=== PATIENT | male | born 1960 | race Two or more races ===

== ENCOUNTER 2019-12-31 18:37 | Inpatient (IN) | payer MEDICARE, OTHER ==
[~2019-12-31] VITALS: Ht 185.4 cm; Wt 89.4 kg
--- NOTE | 2019-12-31 18:48 | NUR ---
Blood sugar of 154 md notified.
--- NOTE | 2019-12-31 18:52 | NUR ---
at bedside to examine patient.
--- NOTE | 2019-12-31 18:55 | NUR ---
negative MRSA results in pt's file.
[2019-12-31] MEDS ORDERED: MAGNESIUM OXIDE 400 MG TABLET PO ONE (19:00)
[2019-12-31] MEDS ORDERED: POTASSIUM CHLORIDE 20 MEQ TAB.PRT.SR PO ONE (19:00)
[2019-12-31] MEDS ORDERED: POTASSIUM CHLORIDE 20 MEQ TAB.PRT.SR ONE (19:03)
[2019-12-31] MEDS ORDERED: LISI-607 PO (19:12)
[2019-12-31] MEDS ORDERED: SITA50TA PO (19:12)
[2019-12-31] MEDS ORDERED: MONT10TA22 PO (19:12)
[2019-12-31] MEDS ORDERED: TIMO5SOL11 EACHEYE (19:12)
[2019-12-31] MEDS ORDERED: ALBU8.5H8 INH (19:12)
[2019-12-31] MEDS ORDERED: ONDA4TAB5 PO (19:12)
[2019-12-31] MEDS ORDERED: ROSU5TAB PO (19:12)
[2019-12-31] MEDS ORDERED: METF-442 PO (19:12)
[2019-12-31] MEDS ORDERED: IBUP100O19 PO (19:12)
[2019-12-31] MEDS ORDERED: QUET200T PO (19:12)
[2019-12-31] MEDS ORDERED: VENL150T PO (19:12)
[2019-12-31] MEDS ORDERED: TEMA30CA5 PO (19:12)
[2019-12-31] MEDS ORDERED: DISU250T7 PO (19:12)
--- NOTE | 2019-12-31 19:14 | NUR ---
Report given incoming R.N.
[2019-12-31 19:25] LABS: *AMPHETAMINE, URINE NEGATIVE (NEGATIVE); *BARBITURATE, URINE NEGATIVE (NEGATIVE); *CANNABINOID, URINE NEGATIVE (NEGATIVE); *COCCAINE, URINE NEGATIVE (NEGATIVE); *OPIATE, URINE NEGATIVE (NEGATIVE); *PHENCYCLIDINE SCREEN,URINE NEGATIVE (NEGATIVE)
--- NOTE | 2019-12-31 19:41 | NUR ---
Patient A&Ox4. denies any SI / HI at this time. All medications accounted for and placed in sealed bags. Safety precautions implemented. Frequent visual checks done
[2019-12-31 20:45] VITALS: BP 149/89
--- NOTE | 2019-12-31 20:45 | NUR ---
Admitted, 59year old male for Voluntary Geropsych Overflow with Dx of Major depression. Patient awake and alert. Patient denies any SOB or acute distress. Patient denies any pain. Patient's belongings checked and in contraband locker. Safety measures in place. Will continue to monitor.
[2019-12-31] MEDS ORDERED: MAGNESIUM HYDROXIDE 30 ML LIQUID UDC PO PRN (21:45)
[2019-12-31] MEDS ORDERED: MAG HYDROX/AL HYDROX/SIMETH 30 ML LIQUID UDC PO PRN (21:45)
[2019-12-31] MEDS: LORAZEPAM 0.5 MG TABLET PO PRN (23:09)
[2019-12-31] MEDS: TEMAZEPAM 7.5 MG CAPSULE PO PRN (23:59)
--- NOTE | 2020-01-01 02:00 | NUR ---
Admission Note: 59 y.o. male admitted to GPS overflow on a Voluntary status with a diagnosis of Major Depression. Dr Lua and Dr Watson notified of admission, medications to be reconciled. Pt was brought here from [facility], where he was treated for acute ETOH intoxication. Pt reported he "fell off the wagon" after several years of sobriety, which increased his depression. Pt denies SI/HI and verbally contracts for safety. Q 15 minute safety checks initiated.
[2020-01-01 04:00] VITALS: BP 140/80
--- NOTE | 2020-01-01 06:20 | NUR ---
Patient in bed sleeping. Easy to arouse. Patient has no s/s of acute distress. Patient has no s/s of pain. Patient was cooperative. Needs attended. Vitals stable. Safety measures in place. Call lights within reach. Will endorse to the oncoming nurse accordingly.
--- NOTE | 2020-01-01 06:37 | NUR ---
Patient slept for 7 hours. No episode or sign of SI observed throughout the shift. Patient was cooperative. Will endorse to the oncoming nurse.
[2020-01-01 07:39] VITALS: BP 140/83
[2020-01-01] MEDS ORDERED: ALBUTEROL SULFATE 8 GM HFA.AER.AD INH PRN (09:15)
[2020-01-01] MEDS ORDERED: TIMOLOL MALEATE XE 0.5% OPHT 5 ML BOTTLE EACHEYE SCH (09:15)
[2020-01-01] MEDS ORDERED: ALBUTEROL SULFATE 2.5 MG/3 ML NEBU NEB PRN (09:30)
[2020-01-01] MEDS: LISINOPRIL 5 MG TABLET PO SCH (10:00)
[2020-01-01] MEDS: METFORMIN HCL 500 MG TABLET PO SCH ×2 (10:00→17:36)
--- NOTE | 2020-01-01 10:00 | NUR ---
pt is on 14 days hold nursing supervisor residential notified no sitter available
[2020-01-01] MEDS: VENLAFAXINE XR 75 MG TAB.ER.24H PO SCH (10:47)
[2020-01-01] MEDS: QUETIAPINE FUMARATE 25 MG TABLET PO SCH ×2 (10:47→17:36)
[2020-01-01] MEDS ORDERED: TIMO5DRO18 EACHEYE (10:59)
[2020-01-01] MEDS: TIMOLOL MALEATE 0.5% OPHT DROP 5 ML BOTTLE EACHEYE SCH ×2 (11:00→21:08)
--- NOTE | 2020-01-01 11:49 | NUR ---
Social Work Family Contact: counter supply worker contacted patient's friend Casper ([phone]) and gathered collateral.
--- NOTE | 2020-01-01 11:49 | NUR ---
Social Work Initial Discharge: Patient is homeless. Per pt, he would want this card writer hand to find him an Independent Living. breakdown worker will work with the pt and the MD regarding appropriate discharge planning. breakdown worker will form a safe and proper discharge.
[2020-01-01] MEDS: THIAMINE HCL 100 MG TABLET PO SCH (12:29)
[2020-01-01] MEDS: FOLIC ACID 1 MG TABLET PO SCH (12:29)
[2020-01-01 15:15] VITALS: BP 132/78
--- NOTE | 2020-01-01 15:18 | NUR ---
TRANSFER THE PT TO [facility] [place] IN STABLE CONDITION
[2020-01-01 16:00] VITALS: BP 121/85
[2020-01-01] MEDS: MONTELUKAST SODIUM 10 MG TABLET PO SCH (17:44)
[2020-01-01 19:46] VITALS: BP 124/74
[2020-01-01] MEDS: ATORVASTATIN 10 MG TABLET PO SCH (21:08)
[2020-01-01] MEDS: QUETIAPINE FUMARATE 200 MG TABLET PO SCH (21:08)
--- NOTE | 2020-01-01 21:49 | NUR ---
PATIENT RECEIVED IN THE ACTIVITIES ROOM WATCHING T.V. PATIENT COMPLAINT WITH MEDICATION. NO AGGRESSIVE OR COMBATIVE BEHAVIOR NOTED WILL CONTINUE TO MONITOR AND REDIRECT NEEDED. PATIENT DENIES SI, WILL CONTINUE TO MONITOR. SAFE ENVIRONMENT PROVIDED, FREQUENT ROUNDING, CLUTTER FREE ENVIRONMENT. BED IN LOWEST POSITION.
[2020-01-01] MEDS: TEMAZEPAM 7.5 MG CAPSULE PO PRN (22:11)
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
[2020-01-02 06:55] LABS: BASOPHILS # (AUTO) 0.1 K/uL (0.0-8.0); BASOPHILS % (AUTO) 1.1 % (0.0-2.0); EOSINOPHILS # (AUTO) 0.1 K/uL (0.0-0.7); EOSINOPHILS % (AUTO) 2.9 % (0.0-7.0); HEMOGLOBIN 13.2 g/dL (12.5-16.3); LYMPHOCYTES # (AUTO) 1.6 K/uL (20.0-40.0); LYMPHOCYTES % (AUTO) 33.5 % (20.5-51.5); MEAN CORPUSCULAR HGB CONC 34 g/dL (32.5-36.3); MEAN CORPUSCULAR VOLUME 85.4 fL (73.0-96.2); MONOCYTES # (AUTO) 0.8 K/uL (2.0-10.0); MONOCYTES % (AUTO) 16.3 % (0.0-11.0); NEUTROPHILS # (AUTO) 2.1 K/uL (1.8-8.9); NEUTROPHILS % (AUTO) 46.2 % (38.5-71.5); PLATELET COUNT (AUTO) 175 K/uL (152-348); RED BLOOD CELL COUNT(AUTO) 4.57 MIL/uL (4.06-5.63); WHITE BLOOD COUNT (AUTO) 4.6 K/uL (3.6-10.2)
[2020-01-02 07:12] LABS: MAGNESIUM 1.3 mg/dL (1.8-2.4); PHOSPHOROUS 4.2 mg/dL (2.5-4.9); POTASSIUM 3.6 mmol/L (3.5-5.1)
[2020-01-02 07:30] VITALS: BP 112/55
[2020-01-02 07:50] LABS: BAND % (MANUAL) 3 % (0-10); EOSINOPHILS % (MANUAL) 2 % (0-8); LYMPHOCYTES % (MANUAL) 41 % (20-40); MONOCYTES % (MANUAL) 11 % (2-10); NEUTROPHILS % (MANUAL) 43 % (42-75)
[2020-01-02] MEDS: QUETIAPINE FUMARATE 25 MG TABLET PO SCH ×2 (08:48→16:12)
[2020-01-02] MEDS: LINAGLIPTIN 5 MG TABLET PO SCH (08:48)
[2020-01-02] MEDS: METFORMIN HCL 500 MG TABLET PO SCH ×2 (08:48→18:28)
[2020-01-02] MEDS: FOLIC ACID 1 MG TABLET PO SCH (08:49)
[2020-01-02] MEDS: VENLAFAXINE XR 75 MG TAB.ER.24H PO SCH (08:49)
[2020-01-02] MEDS: THIAMINE HCL 100 MG TABLET PO SCH (08:49)
[2020-01-02] MEDS: TIMOLOL MALEATE 0.5% OPHT DROP 5 ML BOTTLE EACHEYE SCH ×2 (08:57→20:19)
[2020-01-02] MEDS: LISINOPRIL 5 MG TABLET PO SCH (09:29)
--- NOTE | 2020-01-02 12:27 | NUR ---
Social Work Coordination of Care: solid waste collection worker sent CJ, Refinery Operator Gas Plant at [facility]; ([phone]) patient's clinicals for review. This service writer sent patient's medication list, laboratory list, COVID-19 test, and [facility] & [facility] psychiatric notes.
[2020-01-02] MEDS ORDERED: MAGNESIUM OXIDE 400 MG TABLET PO ONE (14:15)
--- NOTE | 2020-01-02 14:16 | NUR ---
Social Work Discharge Plan: trailhead maintenance worker contacted [facility] ([phone]) who stated that patient is accepted to [facility].
[2020-01-02 15:27] VITALS: BP 103/65
[2020-01-02] MEDS: MONTELUKAST SODIUM 10 MG TABLET PO SCH (18:28)
[2020-01-02 20:00] VITALS: BP 101/66
[2020-01-02] MEDS: ATORVASTATIN 10 MG TABLET PO SCH (20:19)
[2020-01-02] MEDS: ACETAMINOPHEN 325 MG TABLET PO PRN (20:19)
[2020-01-02] MEDS: QUETIAPINE FUMARATE 200 MG TABLET PO SCH (20:20)
--- NOTE | 2020-01-02 20:20 | NUR ---
Patient received in dinning room. AAO x3. No acute distress or SOB was noted. No complain of pain. No SI. No behavioral issues. Compliant with medication. Calm and quite. Bed in low and locked position. Bed alarm is on. Continue to monitor.
[2020-01-02] MEDS: TEMAZEPAM 7.5 MG CAPSULE PO PRN (21:43)
[2020-01-03 07:30] VITALS: BP 92/49
[2020-01-03] MEDS: METFORMIN HCL 500 MG TABLET PO SCH ×2 (08:19→17:01)
[2020-01-03] MEDS: VENLAFAXINE XR 75 MG TAB.ER.24H PO SCH (08:20)
[2020-01-03] MEDS: THIAMINE HCL 100 MG TABLET PO SCH (08:20)
[2020-01-03] MEDS: FOLIC ACID 1 MG TABLET PO SCH (08:20)
[2020-01-03] MEDS: LINAGLIPTIN 5 MG TABLET PO SCH (08:20)
[2020-01-03] MEDS: LISINOPRIL 5 MG TABLET PO SCH (08:24)
[2020-01-03] MEDS: QUETIAPINE FUMARATE 25 MG TABLET PO SCH (08:24)
[2020-01-03] MEDS: TIMOLOL MALEATE 0.5% OPHT DROP 5 ML BOTTLE EACHEYE SCH ×2 (08:30→20:46)
--- NOTE | 2020-01-03 15:16 | NUR ---
Social Work Individual Therapy: hot stick worker met with patient for brief counseling. hot stick worker assessed for patient's level of suicidality. Patient denies SI. As this rfp writer began brief counseling. Patient presented guarded and irritable. Patient did not want to answer to this rfp writer and stated that "this is personal and I don't want to answer it". Patient is withdrawn and needs encouragement to talk. This rfp writer encouraged patient express his feelings and participate in group activities to engage with peers.
[2020-01-03 15:34] VITALS: BP 91/50
[2020-01-03] MEDS: MONTELUKAST SODIUM 10 MG TABLET PO SCH (17:02)
[2020-01-03] MEDS: ATORVASTATIN 10 MG TABLET PO SCH (20:44)
[2020-01-03] MEDS: ACETAMINOPHEN 325 MG TABLET PO PRN (20:45)
[2020-01-03] MEDS: QUETIAPINE FUMARATE 200 MG TABLET PO SCH (20:45)
[2020-01-03 20:48] VITALS: BP 109/71
[2020-01-03] MEDS: TEMAZEPAM 7.5 MG CAPSULE PO PRN (22:01)
[2020-01-04 06:25] LABS: BILIRUBIN,TOTAL 0.2 mg/dL (0.2-1.0); CREATININE 1.1 mg/dL (0.6-1.3); POTASSIUM 3.5 mmol/L (3.5-5.1); TOTAL PROTEIN, SERUM 5.9 g/dL (6.4-8.2)
[2020-01-04 06:30] LABS: MAGNESIUM 1.2 mg/dL (1.8-2.4)
--- NOTE | 2020-01-04 06:35 | NUR ---
NSG/GPS Lab reported a critical level of magnesium 1.2 instructional media services technician physician paged through [employer] exchange, awaiting return call from Dr. Mo. Will endorse to a.m. nurse.
[2020-01-04 07:30] VITALS: BP 115/62
[2020-01-04] MEDS: ACETAMINOPHEN 325 MG TABLET PO PRN (08:26)
[2020-01-04] MEDS: VENLAFAXINE XR 150 MG CAP.SR.24H PO SCH (08:27)
[2020-01-04] MEDS: MAGNESIUM OXIDE 400 MG TABLET PO SCH (08:27)
[2020-01-04] MEDS: LINAGLIPTIN 5 MG TABLET PO SCH (08:27)
[2020-01-04] MEDS: THIAMINE HCL 100 MG TABLET PO SCH (08:27)
[2020-01-04] MEDS: FOLIC ACID 1 MG TABLET PO SCH (08:27)
[2020-01-04] MEDS: METFORMIN HCL 500 MG TABLET PO SCH ×2 (08:27→17:13)
[2020-01-04] MEDS: LISINOPRIL 5 MG TABLET PO SCH (08:28)
[2020-01-04] MEDS: QUETIAPINE FUMARATE 25 MG TABLET PO SCH (08:28)
[2020-01-04] MEDS: TIMOLOL MALEATE 0.5% OPHT DROP 5 ML BOTTLE EACHEYE SCH ×2 (08:30→21:04)
[2020-01-04] MEDS ORDERED: VENLAFAXINE XR 75 MG TAB.ER.24H PO SCH (09:00)
--- NOTE | 2020-01-04 11:00 | NUR ---
Scott/Kyler Puente DNP was in to see patient, was informed , made awre of Magnesium level 1.2, orders received, additional Magnesium 400 mg 1 tab. po was given .
[2020-01-04] MEDS ORDERED: MAGNESIUM OXIDE 400 MG TABLET PO ONE (11:30)
[2020-01-04 16:00] VITALS: BP 118/79
[2020-01-04] MEDS: IBUPROFEN 600 MG TABLET PO PRN (16:22)
[2020-01-04] MEDS: MONTELUKAST SODIUM 10 MG TABLET PO SCH (17:13)
--- NOTE | 2020-01-04 20:00 | NUR ---
RECEIVED PATIENT IN THE DAY ROOM WATCHING TV AND TALKING TO OTHER CLIENTS. HE IS NOTED A/O X 4, ABLE TO VERBALIZED FEELINGS. MOOD IS LOW, AFFECT IS BLUNTED. PATIENT DENIES SI/HI/VH/AV. PATIENT IS GOAL ORIENTED AND ABLE TO CFS. HE IS REASSURED FOR HIS SAFETY. SAFETY AND FALL PRECAUTION IN PLACE. V/S STABLE. WILL CONTINUE TO MONITOR.
[2020-01-04 20:22] VITALS: BP 122/89
[2020-01-04] MEDS: QUETIAPINE FUMARATE 200 MG TABLET PO SCH (21:04)
[2020-01-04] MEDS: ATORVASTATIN 10 MG TABLET PO SCH (21:04)
[2020-01-04] MEDS: TEMAZEPAM 7.5 MG CAPSULE PO PRN (22:00)
[2020-01-04] MEDS: LORAZEPAM 0.5 MG TABLET PO PRN (23:13)
[2020-01-05 07:30] VITALS: BP 98/59
[2020-01-05] MEDS: LINAGLIPTIN 5 MG TABLET PO SCH (08:13)
[2020-01-05] MEDS: VENLAFAXINE XR 150 MG CAP.SR.24H PO SCH (08:13)
[2020-01-05] MEDS: QUETIAPINE FUMARATE 25 MG TABLET PO SCH (08:13)
[2020-01-05] MEDS: LISINOPRIL 5 MG TABLET PO SCH (08:14)
[2020-01-05] MEDS: MAGNESIUM OXIDE 400 MG TABLET PO SCH (08:14)
[2020-01-05] MEDS: THIAMINE HCL 100 MG TABLET PO SCH (08:14)
[2020-01-05] MEDS: FOLIC ACID 1 MG TABLET PO SCH (08:14)
[2020-01-05] MEDS: METFORMIN HCL 500 MG TABLET PO SCH ×2 (08:14→16:32)
[2020-01-05] MEDS: TIMOLOL MALEATE 0.5% OPHT DROP 5 ML BOTTLE EACHEYE SCH ×2 (08:15→20:32)
[2020-01-05] MEDS: IBUPROFEN 600 MG TABLET PO PRN (08:17)
[2020-01-05] MEDS: LORAZEPAM 0.5 MG TABLET PO PRN ×2 (13:28→18:49)
[2020-01-05 15:21] VITALS: BP 114/73
[2020-01-05] MEDS: MONTELUKAST SODIUM 10 MG TABLET PO SCH (16:32)
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
[2020-01-05 20:21] VITALS: BP 117/73
[2020-01-05] MEDS: QUETIAPINE FUMARATE 200 MG TABLET PO SCH (20:32)
[2020-01-05] MEDS: ATORVASTATIN 10 MG TABLET PO SCH (20:32)
[2020-01-05] MEDS: TEMAZEPAM 7.5 MG CAPSULE PO PRN (22:13)
--- NOTE | 2020-01-06 06:27 | NUR ---
GPS/NSG Patient compliant with HS medication. Requested a prn for insomnia with effective outcome, patient slept a total of 6.30 hours. Will continue to monitor as well as provide a safe and therapeutic environment.
[2020-01-06 07:30] VITALS: BP 109/74
[2020-01-06] MEDS: MAGNESIUM OXIDE 400 MG TABLET PO SCH (08:06)
[2020-01-06] MEDS: VENLAFAXINE XR 150 MG CAP.SR.24H PO SCH (08:07)
[2020-01-06] MEDS: FOLIC ACID 1 MG TABLET PO SCH (08:07)
[2020-01-06] MEDS: LINAGLIPTIN 5 MG TABLET PO SCH (08:07)
[2020-01-06] MEDS: METFORMIN HCL 500 MG TABLET PO SCH ×2 (08:07→17:23)
[2020-01-06] MEDS: QUETIAPINE FUMARATE 25 MG TABLET PO SCH (08:07)
[2020-01-06] MEDS: THIAMINE HCL 100 MG TABLET PO SCH (08:07)
[2020-01-06] MEDS: TIMOLOL MALEATE 0.5% OPHT DROP 5 ML BOTTLE EACHEYE SCH ×2 (08:07→21:02)
[2020-01-06] MEDS: LISINOPRIL 5 MG TABLET PO SCH (08:08)
[2020-01-06 10:20] LABS: BASOPHILS # (AUTO) 0.1 K/uL (0.0-8.0); BASOPHILS % (AUTO) 1.1 % (0.0-2.0); EOSINOPHILS # (AUTO) 0.1 K/uL (0.0-0.7); EOSINOPHILS % (AUTO) 1.4 % (0.0-7.0); HEMATOCRIT 42.1 % (36.7-47.1); HEMOGLOBIN 14.2 g/dL (12.5-16.3); LYMPHOCYTES # (AUTO) 1.5 K/uL (20.0-40.0); LYMPHOCYTES % (AUTO) 25.3 % (20.5-51.5); MEAN CORPUSCULAR HEMOGLOBIN 28.9 uug (23.8-33.4); MEAN CORPUSCULAR HGB CONC 34 g/dL (32.5-36.3); MEAN CORPUSCULAR VOLUME 85.6 fL (73.0-96.2); MONOCYTES # (AUTO) 0.5 K/uL (2.0-10.0); MONOCYTES % (AUTO) 8.3 % (0.0-11.0); NEUTROPHILS # (AUTO) 3.8 K/uL (1.8-8.9); NEUTROPHILS % (AUTO) 63.9 % (38.5-71.5); PLATELET COUNT (AUTO) 247 K/uL (152-348); RED BLOOD CELL COUNT(AUTO) 4.92 MIL/uL (4.06-5.63)
[2020-01-06 10:39] LABS: BILIRUBIN,TOTAL 0.2 mg/dL (0.2-1.0); CREATININE 1.2 mg/dL (0.6-1.3); TOTAL PROTEIN, SERUM 6.9 g/dL (6.4-8.2)
[2020-01-06 10:48] LABS: POTASSIUM 4.3 mmol/L (3.5-5.1)
[2020-01-06] MEDS: LORAZEPAM 0.5 MG TABLET PO PRN ×2 (12:34→20:06)
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
[2020-01-06 16:00] VITALS: BP 111/72
[2020-01-06] MEDS: MONTELUKAST SODIUM 10 MG TABLET PO SCH (17:23)
[2020-01-06 20:33] VITALS: BP 112/75
[2020-01-06] MEDS: QUETIAPINE FUMARATE 200 MG TABLET PO SCH (21:01)
[2020-01-06] MEDS: ATORVASTATIN 10 MG TABLET PO SCH (21:01)
[2020-01-06] MEDS: TEMAZEPAM 7.5 MG CAPSULE PO PRN (22:01)
[2020-01-07 07:35] VITALS: BP 95/62
[2020-01-07] MEDS: MAGNESIUM OXIDE 400 MG TABLET PO SCH (08:09)
[2020-01-07] MEDS: LINAGLIPTIN 5 MG TABLET PO SCH (08:09)
[2020-01-07] MEDS: METFORMIN HCL 500 MG TABLET PO SCH ×2 (08:09→17:51)
[2020-01-07] MEDS: THIAMINE HCL 100 MG TABLET PO SCH (08:09)
[2020-01-07] MEDS: FOLIC ACID 1 MG TABLET PO SCH (08:09)
[2020-01-07] MEDS: VENLAFAXINE XR 150 MG CAP.SR.24H PO SCH (08:11)
[2020-01-07] MEDS: TIMOLOL MALEATE 0.5% OPHT DROP 5 ML BOTTLE EACHEYE SCH ×2 (08:12→21:23)
[2020-01-07] MEDS: LISINOPRIL 5 MG TABLET PO SCH (09:00)
[2020-01-07] MEDS: LORAZEPAM 0.5 MG TABLET PO PRN ×2 (12:56→20:15)
--- NOTE | 2020-01-07 13:22 | NUR ---
Social Work Firearms Report: Supervisor Fish [employer]chery completed and submitted a [employer] firearms report for 5250 grave disability certification. A copy of report has been placed in patient chart.
--- NOTE | 2020-01-07 15:55 | NUR ---
Social Work Individual Therapy: template layout worker met with patient for brief counseling. template layout worker assessed for patients level of suicidality. Patient denies SI. Patient presented with euthymic mood. Patient reported that he feels better at the hospital and that he has been receiving the proper care at the hospital. template layout worker actively listened and provided emotional support. This underwriter solicitation director also encouraged patient to alert either this underwriter solicitation director or the nursing staff.
[2020-01-07 16:26] VITALS: BP 124/88
[2020-01-07] MEDS: MONTELUKAST SODIUM 10 MG TABLET PO SCH (17:51)
[2020-01-07 19:50] VITALS: BP 130/81
[2020-01-07] MEDS: QUETIAPINE FUMARATE 200 MG TABLET PO SCH (21:20)
[2020-01-07] MEDS: ATORVASTATIN 10 MG TABLET PO SCH (21:20)
--- NOTE | 2020-01-07 22:00 | NUR ---
received to care, watching tv with peers, calm, and pleasant, upon approach. compliant with medications, and staff direction. PRN ativan was given at 2014, for anxiety. he reported good effects within an hour. as of 2199, he remains awake, watching tv. no distress noted. will continue to monitor closely.
[2020-01-07] MEDS: TEMAZEPAM 7.5 MG CAPSULE PO PRN (22:48)
--- NOTE | 2020-01-07 23:30 | NUR ---
PRN restoril was given at 2247, for insomnia. as of 2329, he appears to be asleep, in bed. no distress noted. will continue to monitor closely.
--- NOTE | 2020-01-08 06:00 | NUR ---
slept 6.25 hours. continues to sleep. no distress noted.
[2020-01-08 08:00] VITALS: BP 102/70
[2020-01-08] MEDS: METFORMIN HCL 500 MG TABLET PO SCH (08:33)
[2020-01-08] MEDS: MAGNESIUM OXIDE 400 MG TABLET PO SCH (08:33)
[2020-01-08] MEDS: THIAMINE HCL 100 MG TABLET PO SCH (08:33)
[2020-01-08] MEDS: LINAGLIPTIN 5 MG TABLET PO SCH (08:33)
[2020-01-08] MEDS: FOLIC ACID 1 MG TABLET PO SCH (08:33)
[2020-01-08] MEDS: VENLAFAXINE XR 150 MG CAP.SR.24H PO SCH (08:33)
[2020-01-08] MEDS: TIMOLOL MALEATE 0.5% OPHT DROP 5 ML BOTTLE EACHEYE SCH (08:34)
[2020-01-08 08:39] VITALS: BP 102/70
[2020-01-08] MEDS: LISINOPRIL 5 MG TABLET PO SCH (08:39)
--- NOTE | 2020-01-08 09:43 | NUR ---
Social Work Discharge Note: Patient will be discharged to retirement facility to [facility] [address] [place] [address]; ) via Ambulance transportation. Please arrange Ambulance transportation for patient to be picked up at 1PM. Assistant Infant Toddler Teacher spoke with MELBA, Forestry Contractor at [facility]; , who stated patient will be accepted at facility today. Patient is alert and oriented x3-4, and is not able to plan for self-care at this time, but is willing to accept care provided for her at the facility. Patient denies any suicidal or homicidal ideation. Patient is aware and agreeable with discharge plans. Patient does not have any family members at the moment. Patient will continue to follow-up with her (Psychiatrist) Dr. Lua and ([place]likview Developer) Dr. Mo at [facility] [address] [place] [address]; ). Patient was provided with a brief substance abuse intervention and referred to the following substance abuse programs: [facility] Substance Abuse Self-helpline ([phone]); [facility] ([phone]); [facility] ([phone]); [facility] ([phone]); [facility] ([phone]); [facility] [phone]; [facility] ([phone]). Patient will follow-up at the center. Patient presents with euthymic mood and congruent affect. Patient signed the homeless waiver upon discharge, copy was placed in the chart, and resources were given.
--- NOTE | 2020-01-08 10:27 | NUR ---
Social Work Brief Substance Abuse Intervention: Patient was provided with a brief substance abuse intervention and referred to the following substance abuse programs: [facility] Substance Abuse Self-helpline ([phone]); [facility] [address] [place] [address] ([phone]); [facility] [address] [facility] [address] ([phone]); [facility] ([phone]); [facility] ([phone]); [facility] ([phone]); [facility] ([phone]).
--- NOTE | 2020-01-08 14:06 | NUR ---
Pt is being discharged to [facility]. pt is aware and in agreement. Pt denies pain, vs stable. Discharge instructions provided, pt verbalizes understanding. Resources in the community provided as well. Pt is calm and cooperative, A/O x 3. Report was called and given to LISSETH Hameed.
== END 2020-01-08 14:17 | DRG 885 ==
LOC: ER 18:40 → GPSOV3 20:13 → GPS 01-01 15:51
PROVIDERS: ADMIT Psychiatry & Neurology Psychosomatic Medicine; ATTEND Nurse Practitioner Acute Care
DX: F25.1 Schizoaffective disorder, depressive type (principal); E11.65 Type 2 diabetes mellitus with hyperglycemia; R45.851 Suicidal ideations; F23 Brief psychotic disorder; F17.210 Nicotine dependence, cigarettes, uncomplicated; Z59.0 Homelessness; E78.5 Hyperlipidemia, unspecified; Z71.6 Tobacco abuse counseling; F32.9 Major depressive disorder, single episode, unspecified; I10 Essential (primary) hypertension; F10.21 Alcohol dependence, in remission; Z79.84 Long term (current) use of oral hypoglycemic drugs
CPT/HCPCS: 36415; 70030-TC; 80307; 83735; 84100; 85025; A4663; U0003-CS